=== PATIENT | male | born 1945 | race Caucasian/White ===

== ENCOUNTER 2017-03-31 10:58 | Day surgery (SDC) | payer MEDICARE, BC ==
[~2017-03-31] VITALS: Ht 172.7 cm; Wt 121.0 kg
[~2017-03-31 10:58] MED LIST: AMIODARONE HCL400 MG; ANDRODERM1 EAC2 TOP; ASPIR-LOW81 M1 PO; ASPIRIN EC LOW81 MG; ASTELIN137 MCG; ATENOLOL50 MG; ATENOLOL50 MG PO; BAYER81 MG PO; BETAPACE80 M2 PO; BETAPACE80 MG PO; C-PAP; CENTRUM SILVER1 EAC3 PO; COUMADIN2.5 MG; COUMADIN5 MG; DEXAMETHASONE TOP; DEXAMETHASONE4 M1 PO; GLIPIZIDE5 M1 PO; GLUCOTROL10 M1 PO; INDOCIN50 MG; LANTUS100 UNITS/ SC; LEVAQUIN750 M1 PO; LEXAPRO20 M2 PO; LISINOPRIL-HCT1 EAC1 PO; LISINOPRIL20 MG; LORTAB 5-325 M1 EAC1 PO; METFORMIN HCL500 M3 PO; METFORMIN HCL500 PO; NASONEX17 GM; NORVASC5 M2 PO; NORVASC5 MG PO; NOVOLOG100 UNITS/; PLAVIX75 MG; PLAVIX75 MG PO; PRAVACHOL20 M1 PO; PRAVACHOL20 MG; PRAVACHOL20 MG PO; PROTONIX40 MG; TENORMIN50 M1 PO; TRULICITY1.5 MG/0.5 SC; ZESTORETIC PO
[2017-03-31 11:51] LABS: PROTHROMBIN TIME 11.8 SECONDS (9.0-13.6)
[2017-03-31 11:57] LABS: BASO % 0.4 % (0-2); EOS % 3.6 % (0-7); EOSINOPHIL ABSOLUTE COUNT 0.3 tho/cmm (0.0-0.7); HCT-HEMATOCRIT 47.7 % (36.0-53.5); HGB-HEMOGLOBIN 16.9 gm/dl (13.5-17.0); IMMATURE GRANULOCYTES ABSOLUTE 0.04 tho/cmm (0-0.03); IMMATURE GRANULOCYTES PERCENT 0.4 % (0-0.3); LYMPH % 25.8 % (20-45); LYMPH ABSOLUTE COUNT 2.4 tho/cmm (0.8-4.5); MCH (MEAN CORPUSCULAR HGB) 31.4 pg (28.0-32.0); MCHC MEAN CORPUSCULAR HGB CONC 35.4 % (32.0-36.0); MCV (MEAN CELL VOLUME) 88.5 fl (82.0-96.0); MEAN PLATELET VOLUME 9.5 cmc (9.4-12.4); MONO % 6.2 % (0-12); MONOCYTE ABSOLUTE COUNT 0.6 tho/cmm (0.0-1.2); NEUTROPHIL ABSOLUTE COUNT 5.9 tho/cmm (1.6-8.0); NEUTROPHIL-AUTOMATED 5.9 tho/cmm (1.6-8.0); NEUTROPHILS % 63.6 % (40-80); PLATELET COUNT 237 tho/cmm (150-450); RED BLOOD COUNT 5.39 mil/cmm (4.40-5.70); RED CELL DISTRIBUTION WIDTH 14.9 % (12.4-16.4); WHITE BLOOD COUNT 9.2 tho/cmm (4.0-10.0)
[2017-03-31 11:58] LABS: ANION GAP 14 mmol/L (0-20); BLOOD UREA NITROGEN 29 mg/dl (6-24); CARBON DIOXIDE-VENOUS 26 mmol/L (22-32); CHLORIDE 103 mmol/l (96-110); CREATININE 0.97 mg/dl (0.60-1.30); GLUCOSE 163 mg/dL (70-110); SODIUM 138 mmol/L (135-145); eGFR VALUE FOR BLACK >90 mL/Min
[2017-03-31 12:04] LABS: POTASSIUM 4.7 mmol/L (3.7-5.1)
== END 2017-03-31 17:40 ==
LOC: SHSC 10:58 → ENDOS 10:58 → SHSC 10:59 → ENDOS 13:00
PROVIDERS: Anesthesiology; Internal Medicine Pulmonary Disease
PROC: 0B938ZX Drainage of Right Main Bronchus, Via Natural or Artificial Opening Endoscopic, Diagnostic (ICD-10-PCS; principal; 2017-03-31)
PROC: 0BB38ZX Excision of Right Main Bronchus, Via Natural or Artificial Opening Endoscopic, Diagnostic (ICD-10-PCS; 2017-03-31)
DX: R91.8 Other nonspecific abnormal finding of lung field (principal); Z85.528 Personal history of other malignant neoplasm of kidney; Z85.820 Personal history of malignant melanoma of skin; E11.9 Type 2 diabetes mellitus without complications; F32.9 Major depressive disorder, single episode, unspecified; F41.9 Anxiety disorder, unspecified; H26.9 Unspecified cataract; H35.30 Unspecified macular degeneration; I10 Essential (primary) hypertension; J44.9 Chronic obstructive pulmonary disease, unspecified; G47.30 Sleep apnea, unspecified; E78.5 Hyperlipidemia, unspecified; I25.2 Old myocardial infarction; I25.10 Atherosclerotic heart disease of native coronary artery without angina pectoris; Z88.5 Allergy status to narcotic agent; Z79.899 Other long term (current) drug therapy; Z95.1 Presence of aortocoronary bypass graft; Z95.5 Presence of coronary angioplasty implant and graft; Z98.890 Other specified postprocedural states
CPT/HCPCS: J0171